=== PATIENT | female | born 1970 | race Caucasian/White ===

== ENCOUNTER 2018-09-02 06:12 | Inpatient (IN) ==
--- NOTE | 2018-08-19 09:00 | Anesthesiology Consultation ---
Date of Service August 19, 2018 History Surgery Operation Date: 09/02/18 10:35 Proposed Procedures p L4-L5, L5-S1 Posterior Lumbar Interbody Fusion - Alvarez Ortiz DO Height/Weight Height: 5 ft 5 in Weight: 102.058 kg Allergies Allergy/AdvReac Type Severity Reaction Status Date / Time bupropion [From Wellbutrin] Allergy Hives Verified 08/19/18 07:17 Penicillins Allergy Hives Verified 08/19/18 07:17 Sulfa (Sulfonamide Allergy Hives Verified 08/19/18 07:17 Antibiotics) Medications Home Medications Medication Instructions Recorded Confirmed Last Taken Vitamin B 12 Injection 1 dose IM MONTHLY 08/19/18 08/19/18 Unknown alprazolam 0.5 mg PO BID 08/19/18 08/19/18 Unknown amitriptyline 50 mg PO HS 08/19/18 08/19/18 Unknown aripiprazole 10 mg PO QAM 08/19/18 08/19/18 Unknown ascorbic acid (vitamin C) [Vitamin 500 mg PO QAM 08/19/18 08/19/18 Unknown C] buspirone 7.5 mg PO BID 08/19/18 08/19/18 Unknown cyclobenzaprine 5 mg PO TID PRN 08/19/18 08/19/18 Unknown gabapentin 300 mg PO BID 08/19/18 08/19/18 Unknown hydrocodone-acetaminophen 1 tab PO Q6H PRN 08/19/18 08/19/18 Unknown lamotrigine 50 mg PO BID 08/19/18 08/19/18 Unknown multivitamin 1 tab PO QAM 08/19/18 08/19/18 Unknown paroxetine HCl 40 mg PO QAM 08/19/18 08/19/18 Unknown polysaccharide iron complex 150 mg PO QAM 08/19/18 08/19/18 Unknown [Ferrex 150] quetiapine [Seroquel] 25 mg PO QAM 08/19/18 08/19/18 Unknown quetiapine [Seroquel] 50 mg PO HS 08/19/18 08/19/18 Unknown Past Medical History Medical History Anemia Anxiety Bipolar disorder Chronic back pain Degenerative disc disease Depression Fibromyalgia History of ovarian cyst History of tooth extraction Hypertension Migraine Osteoarthritis Periodic limb movement disorder Past Family History Family History Mother Family history of diabetes mellitus Past Surgical History Surgical History History of appendectomy History of cholecystectomy History of dilatation and curettage x 3 History of endometrial ablation History of gastric bypass History of herniorrhaphy x 2 History of tonsillectomy History of total abdominal hysterectomy and bilateral salpingo-oophorectomy Social History Smoking Status: Current every day smoker tobacco type: cigarettes Smoking cigarettes per day: 7-10 Do You Dip or Chew Tobacco: No Hx Alcohol Use: Yes Alcohol type: beer and wine alcohol intake frequency: a few times a month Hx Substance Use: No substance use type: does not use Testing Chest X-Ray Date: 08/17/18 Findings: + NAD Laboratory Results Blood Type O Positive 08/17/18 11:41 Antibody Screen NEGATIVE 08/17/18 11:41 Laboratory Tests 08/17/18 08/17/18 08/17/18 11:40 11:40 11:40 WBC 6.76 Hgb 13.0 Hct 40.3 Plt Count 318 PT 9.5 INR 0.9 APTT 25.9 Sodium 138 Potassium 3.5 Chloride 104 Carbon Dioxide 26 BUN 5 L Creatinine 0.93 Glucose 99
--- NOTE | 2018-09-01 11:13 | History and Physical Report ---
DATE OF ADMISSION: 09/02/2018 She is being scheduled for a posterior lumbar interbody fusion lumbar spine at L4-S1. PAST MEDICAL HISTORY: Positive for bleeding issues, anxiety, depression, obesity, but no diabetes, heart disease. PAST SURGICAL HISTORY: Includes appendectomy, tonsillectomy, gastric bypass, cholecystectomy. ALLERGIES: PENICILLIN, SULFA, WELLBUTRIN. FAMILY HISTORY: Heart disease. SOCIAL HISTORY: She is , 3 children, active, mild smoking. REVIEW OF SYSTEMS: She denies any fevers, sweats, chills. Does have weight gain. Does have fatigue. Does have occasional headaches. Ear, nose and throat negative. She denies asthma, wheezing, shortness of breath. Denies chest pain, palpitations. She has some heartburn, frequent urinary issues. She has depression, sleep issues. She has numbness, tingling, weakness, joint pain, stiffness as well easy bruisability. MEDICATIONS: Kept on her inquiry, I reviewed them all. They are quite lengthy. I am holding off antidepressant. Several meds are for pain, most for depression and anxiety. PHYSICAL EXAMINATION: GENERAL: She is 5 feet 5 inches, 225 pounds. She is in distress. HEENT: Essentially normal. Vascular structures are normal. VITAL SIGNS: Blood pressure 130/80, pulse 80. CARDIAC: Normal S1, S2. No S3. LUNGS: Clear to auscultation. No rales, rhonchi. ABDOMEN: Soft, nontender, bowel sounds present. MUSCULOSKELETAL: She has decreased range of motion, flexion and extension of the spine. She has adequate motor strength and sensation. She has no extremity loss, no loss of walking ability. IMAGES: Reviewed demonstrate a 2 level pathology, lumbar spine. PLAN: Includes a PLIF lumbar spine L4-S1.
[~2018-09-02 06:12] MED LIST: CLINDAMYCIN 600 MG/54 ML BAG IV SCH; LR 15ML/HR IV SCH; SODIUM CHLORIDE 0.9% 1,000 ML IV SCH
[2018-09-02] MEDS ORDERED: VANCOMYCIN HCL 1000MG/20ML VIAL ONE (07:57)
[2018-09-02] MEDS ORDERED: THROMBIN FOR SOLN 20000 UNIT KIT ONE (07:58)
[2018-09-02] MEDS ORDERED: GELATIN SPONGE SZ 100 ONE ×2 (07:58→11:09)
[2018-09-02] MEDS ORDERED: BACITRACIN INJ 50,000 UNIT VIAL ONE (07:58)
[2018-09-02] MEDS ORDERED: BUPIVACAINE/EPINEPHRINE 0.5% MPF 1:200,000 30 ML VIAL ONE ×2 (08:01)
[2018-09-02] MEDS ORDERED: NEOSTIGMINE METHYLSULFATE 5 MG/5 ML SYR ONE (08:14)
[2018-09-02] MEDS ORDERED: LIDOCAINE HCL 2% 2 ML VIAL/AMP(20MG/ML) INFIL ONE (08:14)
[2018-09-02] MEDS ORDERED: SODIUM CHLORIDE 0.9% INJ 10 ML VIAL ONE (08:14)
[2018-09-02] MEDS ORDERED: HYDROmorphone INJ 2 MG/ML SYR/VIAL ONE (08:14)
[2018-09-02] MEDS ORDERED: fentaNYL citrate 100 MCG/2 ML VIAL ONE ×2 (08:14→11:46)
[2018-09-02] MEDS ORDERED: MIDAZOLAM HCL 1 MG/ML 2ML VIAL ONE (08:14)
[2018-09-02] MEDS ORDERED: PROPOFOL IV EMULSION 10 MG/ML 20 ML VIAL IV ONE (08:14)
[2018-09-02] MEDS ORDERED: ONDANSETRON INJ 2 MG/ML 2 ML VIAL ONE ×2 (08:14)
[2018-09-02] MEDS ORDERED: DEXAMETHASONE SOD INJ 4 MG/ML VIAL ONE (08:14)
[2018-09-02] MEDS ORDERED: GLYCOPYRROLATE 0.2 MG/ML VIAL ONE ×2 (08:14)
[2018-09-02] MEDS ORDERED: LARYING-O-JET KIT (LTA) ONE (08:14)
[2018-09-02] MEDS ORDERED: ONDANSETRON INJ 2 MG/ML 2 ML VIAL IV PRN ×2 (08:23→14:14)
[2018-09-02] MEDS ORDERED: LABETALOL HCL IV 5 MG/ML 20ML IV PRN (08:23)
[2018-09-02] MEDS ORDERED: ATROPINE SULFATE 0.1 MG/ML 10ML SYR IV PRN (08:23)
--- NOTE | 2018-09-02 08:23 | History & Physical Bridge Note ---
Date of Service September 02, 2018 History & Physical Bridge Note I have examined the patient, reviewed the History & Physical and in the interval since the performance of the History & Physical I have noted the following changes of clinical significance: no changes noted
[2018-09-02] MEDS ORDERED: PHENYLEPHRINE HCL 10 MG/ML VIAL ONE (10:40)
--- NOTE | 2018-09-02 11:52 | Fluoroscopy Report ---
FL spine 1V any level CLINICAL HISTORY: 47 years-old Female presenting with L4-L5 L5-S1 POSTERIOR LUMBAR INTERBODY FUSION. TECHNIQUE: 3 fluoroscopic image(s) recorded as part of an intraoperative procedure. COMPARISON: MR from 07/23/2018. FINDINGS/IMPRESSION: Interval posterior bilateral transpedicular screw and ana fixation of L4-S1 and interbody spacer plac ement. Surgical instrumentation and surgical material projects over the operative bed. Please see surgical report for further details. Fluoroscopy dosage (mGy): 21.29. Fluoroscopy time: 15.2 seconds. Number or time of fluoroscopic spot images: 6.9 seconds. Electronically signed by: Oswaldo Klein M.D. 09/02/2018 11:50 AM
[2018-09-02] MEDS ORDERED: ALBUMIN HUMAN 5% 12.5 GM/250 ML VIAL IV ONE (12:02)
--- NOTE | 2018-09-02 12:15 | Post Operative Brief Note ---
Immediate Post Op Note v1 Date of Surgery September 02, 2018 Pre & Post Diagnosis Operation Date: 09/02/18 08:15 Pre-Op Diagnosis: Disc Herniation, Spinal Stenosis Post-Op Diagnosis: Disc Herniation, Spinal Stenosis Procedure Operation Date: 09/02/18 08:15 Actual Procedures p L4-L5, L5-S1 Posterior Lumbar Interbody Fusion(Not Applicable) - Alvarez Ortiz DO Surgeon Alvarez Ortiz DO Senior Data Scientist ebenezer Estimated Blood Loss 300 Findings Consistent with Post-Op Diagnosis Drains Mcgarry Catheter and Hemovac Drain (10 Fr)
[2018-09-02] MEDS ORDERED: ROCURONIUM BROMIDE 10 MG/ML 5 ML VIAL ONE (12:36)
[2018-09-02] MEDS: HYDROmorphone INJ 1 MG/ML SYRINGE IV PRN ×4 (13:05→13:20)
--- NOTE | 2018-09-02 13:33 | Anesthesiology Progress Note ---
Date of Service September 02, 2018 Anesthesia Post Procedure Vital Signs Vital Signs: Temp Pulse Pulse Resp BP Pulse Ox 09/02/18 13:31 36.6 C 105 H 16 117/89 94 09/02/18 13:21 104 H 16 122/84 96 09/02/18 13:09 105 H 16 141/87 H 97 09/02/18 12:55 106 H 16 138/82 96 09/02/18 12:45 101 H 16 122/98 99 09/02/18 12:35 108 H 14 128/83 99 09/02/18 12:29 36.2 C L 122 H 14 113/88 99 09/02/18 06:50 36.5 C 73 18 121/78 95 Pain Intensity Back: Pain Intensity: 3 Notes Mental Status: alert / awake / arousable Patient Amnestic to Procedure: Yes Nausea / Vomiting: adequately controlled Pain: adequately controlled Airway Patency, RR, SpO2: stable & adequate BP & HR: stable & adequate Hydration State: stable & adequate Anesthetic Complications: no major complications apparent
[2018-09-02] MEDS ORDERED: TRAMADOL HCL 50 MG TABLET PO PRN (14:14)
[2018-09-02] MEDS ORDERED: CYCLOBENZAPRINE HCL 5 MG TAB PO PRN (14:14)
[2018-09-02] MEDS ORDERED: BISACODYL 10 MG SUPP PR PRN (14:14)
[2018-09-02] MEDS ORDERED: MAGNESIUM HYDROXIDE SUSP 30 ML UDC PO PRN (14:14)
[2018-09-02] MEDS: SODIUM CHLORIDE 0.9% 1000ML 1,000 ML IV SCH (15:05)
[2018-09-02] MEDS: OXYCODONE HCL IR 5 MG TAB (IMMEDIATE RELEASE) PO PRN (16:02)
[2018-09-02] MEDS: CEFAZOLIN 2000MG 2,000 MG/15 ML SYR IV SCH (16:44)
[2018-09-02] MEDS: HYDROCODONE/ACETAMINOPHEN 10/325 TAB PO PRN (18:28)
--- NOTE | 2018-09-02 19:24 | Operative Report ---
DATE OF OPERATION: 09/02/2018 PREOPERATIVE DIAGNOSIS: Instability and stenosis at 2 levels of the lumbar spine L4-5, L5-S1. POSTOPERATIVE DIAGNOSIS: Instability and stenosis at 2 levels of the lumbar spine L4-5, L5-S1. PROCEDURE: 1. Included posterior approach laminectomy, foraminotomy, partial facetectomy at L4-5 and the sacrum, foraminotomy is completely performed. 2. Pedicle screw instrumentation L4-5 and sacrum. This was a 3-level fusion. 3. Posterior lateral interbody fusion at L4-5 and L5-S1. 4. Posterior lateral fusion, L4-5 and L5-S1. SURGEON: Alvarez Ortiz, COMPLICATIONS: Zero. BLOOD LOSS: 350 DESCRIPTION OF PROCEDURE: The patient was taken the operating room and general intubated anesthetic provided to patient, placed prone, scrubbed, prepped, and draped sterile. We had a skin incision, fascial incision, dissecting soft tissue in the same plane. We put a deep self-retaining retractors. We decompressed the neural elements, particularly given the decompression of lamina 4, lamina 5, partial of S1, foraminotomies, partial facetectomies. We safely were able to get pedicle screws then placed at L4-5 and sacrum bilaterally. We were safely able to retract the dura over in a medial direction. I do a complete discectomy L4-5 and L5-S1. I was pleased with the dissection, decompression, and stabilization. We then further more bone grafted out of the transverse processes, completing the 360 fusion. We then closed over vancomycin powder. We closed over a Hemovac drain. Sterile dressings applied. The patient returned to PACU stable. No apparent interoperative complications. IMPLANTS USED: By the Rossolini. No complications. Blood loss controlled. I attest to the content of the Intraoperative Record and any orders documented therein. Any exception s are noted below.
[2018-09-02] MEDS: BusPIRone 15 MG TAB PO SCH (20:51)
[2018-09-02] MEDS: AMITRIPTYLINE HCL 50 MG TAB PO SCH (20:52)
[2018-09-02] MEDS: GABAPENTIN 300 MG CAP PO SCH (20:53)
[2018-09-02] MEDS: lamoTRIgine 25 MG TAB PO SCH (20:53)
[2018-09-02] MEDS: DOCUSATE SODIUM/SENNA 50/8.6MG TAB PO SCH (20:54)
[2018-09-02] MEDS: QUETIAPINE FUMARATE 25 MG TABLET PO SCH (20:54)
[2018-09-02] MEDS ORDERED: ALPRAZolam 0.5 MG TABLET PO SCH (21:00)
[2018-09-02] MEDS: ALPRAZolam 0.5 MG TABLET PO SCH (21:03)
[2018-09-03] MEDS: CEFAZOLIN 2000MG 2,000 MG/15 ML SYR IV SCH (00:03)
[2018-09-03] MEDS: OXYCODONE HCL IR 5 MG TAB (IMMEDIATE RELEASE) PO PRN ×4 (00:09→18:29)
[2018-09-03] MEDS: HYDROmorphone INJ 0.5 MG/0.5 ML SYR IV PRN ×2 (03:15→10:22)
[2018-09-03] MEDS ORDERED: Nursing to Pharmacy Communication ONE (04:29)
[2018-09-03] MEDS: SODIUM CHLORIDE 0.9% 1000ML 1,000 ML IV SCH (05:44)
--- NOTE | 2018-09-03 07:52 | Anesthesiology Progress Note ---
Date of Service September 03, 2018 Anesthesia Post Procedure Vital Signs Vital Signs: Temp Pulse Pulse Pulse Resp BP BP 09/03/18 07:41 36.4 C L 100 H 18 109/75 09/03/18 03:14 36.8 C 109 H 17 97/66 L 09/03/18 00:13 36.6 C 108 H 16 111/72 09/02/18 19:17 36.5 C 97 H 16 107/69 09/02/18 17:16 36.7 C 115 H 18 102/67 09/02/18 16:18 36.7 C 98 H 16 121/82 09/02/18 15:13 36.6 C 101 H 16 124/84 09/02/18 14:43 100 H 16 123/80 09/02/18 14:00 36.8 C 111 H 14 115/75 09/02/18 13:40 36.6 C 104 H 16 123/86 09/02/18 13:30 36.6 C 105 H 16 117/89 09/02/18 13:21 104 H 16 122/84 09/02/18 13:09 105 H 16 141/87 H 09/02/18 12:55 106 H 16 138/82 09/02/18 12:45 101 H 16 122/98 09/02/18 12:35 108 H 14 128/83 09/02/18 12:29 36.2 C L 122 H 14 113/88 Pulse Ox 09/03/18 07:41 97 09/03/18 03:14 91 09/03/18 00:13 91 09/02/18 19:17 91 09/02/18 17:16 97 09/02/18 16:18 99 09/02/18 15:13 97 09/02/18 14:43 98 09/02/18 14:00 98 09/02/18 13:40 95 09/02/18 13:30 94 09/02/18 13:21 96 09/02/18 13:09 97 09/02/18 12:55 96 09/02/18 12:45 99 09/02/18 12:35 99 09/02/18 12:29 99 Pain Intensity Back: Pain Intensity: 8 Notes Mental Status: alert / awake / arousable and participated in evaluation Patient Amnestic to Procedure: Yes Nausea / Vomiting: adequately controlled Pain: adequately controlled Airway Patency, RR, SpO2: stable & adequate BP & HR: stable & adequate Hydration State: stable & adequate Anesthetic Complications: no major complications apparent and Pt Satisfied with anesthetic care
[2018-09-03] MEDS: ARIPiprazole 10 MG TAB PO SCH (08:52)
[2018-09-03] MEDS: BusPIRone 15 MG TAB PO SCH (08:52)
[2018-09-03] MEDS: lamoTRIgine 25 MG TAB PO SCH ×2 (08:54→21:05)
[2018-09-03] MEDS: MULTIVITAMIN TAB PO SCH (08:54)
[2018-09-03] MEDS: GABAPENTIN 300 MG CAP PO SCH ×2 (08:54→21:07)
[2018-09-03] MEDS: PARoxetine HCl 20 MG TAB PO SCH (08:55)
[2018-09-03] MEDS: IRON POLYSACCHARIDE COMPLEX 150 MG CAPSULE PO SCH (08:55)
[2018-09-03] MEDS: ASCORBIC ACID 500 MG TAB PO SCH (08:56)
[2018-09-03] MEDS: QUETIAPINE FUMARATE 25 MG TABLET PO SCH ×2 (08:56→21:07)
[2018-09-03] MEDS: ALPRAZolam 0.5 MG TABLET PO SCH ×2 (08:56→21:04)
[2018-09-03] MEDS: AMITRIPTYLINE HCL 50 MG TAB PO SCH (21:07)
[2018-09-03] MEDS: DOCUSATE SODIUM/SENNA 50/8.6MG TAB PO SCH (21:08)
[2018-09-04] MEDS: HYDROmorphone INJ 0.5 MG/0.5 ML SYR IV PRN ×2 (01:14→04:32)
[2018-09-04] MEDS: ALPRAZolam 0.5 MG TABLET PO SCH ×2 (07:35→21:46)
[2018-09-04] MEDS: PARoxetine HCl 20 MG TAB PO SCH (07:35)
[2018-09-04] MEDS: IRON POLYSACCHARIDE COMPLEX 150 MG CAPSULE PO SCH (07:36)
[2018-09-04] MEDS: QUETIAPINE FUMARATE 25 MG TABLET PO SCH ×2 (07:36→21:44)
[2018-09-04] MEDS: GABAPENTIN 300 MG CAP PO SCH ×2 (07:36→21:42)
[2018-09-04] MEDS: ASCORBIC ACID 500 MG TAB PO SCH (07:36)
[2018-09-04] MEDS: lamoTRIgine 25 MG TAB PO SCH ×2 (07:37→21:42)
[2018-09-04] MEDS: MULTIVITAMIN TAB PO SCH (07:37)
[2018-09-04] MEDS: ARIPiprazole 10 MG TAB PO SCH (07:37)
[2018-09-04] MEDS: OXYCODONE HCL IR 5 MG TAB (IMMEDIATE RELEASE) PO PRN ×3 (07:38→19:03)
--- NOTE | 2018-09-04 10:11 | Discharge Summary ---
SUBJECTIVE: She is alert and oriented. Minimal complaints of pain. Vital signs stable. She had an uneventful postoperative course here for lumbar fusion. OBJECTIVE: Wound clean, dry. Afebrile, no deficits. Images not required. ASSESSMENT: Status post lumbar spine posterior lumbar interbody fusion procedure L4, L5, and S1 lumbar spine. PLAN: At this point in time, we will get her discharged home later today. Dressing changed. She will wear a back brace for support. She is up and ambulatory. She has prescriptions on her chart and a followup appointment.
[2018-09-04] MEDS: ACETAMINOPHEN 1,000 MG/100 ML VIAL IV PRN (10:32)
[2018-09-04] MEDS: AMITRIPTYLINE HCL 50 MG TAB PO SCH (21:42)
[2018-09-04] MEDS: DOCUSATE SODIUM/SENNA 50/8.6MG TAB PO SCH (21:44)
[2018-09-05] MEDS: ACETAMINOPHEN 1,000 MG/100 ML VIAL IV PRN (01:27)
[2018-09-05] MEDS: OXYCODONE HCL IR 5 MG TAB (IMMEDIATE RELEASE) PO PRN ×2 (04:54→09:34)
[2018-09-05] MEDS: ASCORBIC ACID 500 MG TAB PO SCH (09:31)
[2018-09-05] MEDS: lamoTRIgine 25 MG TAB PO SCH (09:31)
[2018-09-05] MEDS: ARIPiprazole 10 MG TAB PO SCH (09:32)
[2018-09-05] MEDS: PARoxetine HCl 20 MG TAB PO SCH (09:32)
[2018-09-05] MEDS: IRON POLYSACCHARIDE COMPLEX 150 MG CAPSULE PO SCH (09:33)
[2018-09-05] MEDS: QUETIAPINE FUMARATE 25 MG TABLET PO SCH (09:34)
[2018-09-05] MEDS: MULTIVITAMIN TAB PO SCH (09:34)
[2018-09-05] MEDS: ALPRAZolam 0.5 MG TABLET PO SCH (09:34)
[2018-09-05] MEDS: GABAPENTIN 300 MG CAP PO SCH (09:34)
[2018-09-05] MEDS: HYDROCODONE/ACETAMINOPHEN 10/325 TAB PO PRN (12:51)
--- NOTE | 2018-09-07 12:34 | Coding Query ---
CODING QUERY To promote full compliance with coding requirements relating to patient care, provider participation is requested in all cases of molder apprentice uncertainty. Please assist us with the question(s) below: Coding Question(s): The Operative Report documents bone graft out of the transverse process. Please specify below, the type of bone graft used. ( ) Autologous Bone Graft ( ) Allograft (x ) Both Allograft and Autologous Bone Graft Physician's Response(s): Thank you Joy Hughes Principal Diagnosis: "that condition established after study, to be chiefly responsible for occasioning the admission of the patient to the hospital for care." Co-Existing Principal Diagnosis: "when two or more diagnoses equally meet the criteria for principal diagnosis as determined by the circumstances of admission , diagnostic work up, and/or therapy provided, and the Alphabetic Index, Tabular List, or another coding guideline does not provide sequencing direction , any one of the diagnoses may be sequenced first." "When the physician has documented what appears to be a current diagnosis in the body of the record, but has not included the diagnosis in the final diagnostic statement, the physician should be asked whether the diagnosis should be added." (Source [facility]oding [facility] 2 QTR90. p3-4) JENIFER
[2018-09-10] MEDS ORDERED: CYANOCOBALAMIN 1000 MCG/ML VIAL IM SCH (09:00)
== END 2018-09-05 13:19 | disposition home or self-care (01) | DRG 455 ==
LOC: ASU 06:12 → 3E 12:29